=== PATIENT | male | born 1960 | race Caucasian/White ===

== ENCOUNTER → 2019-04-24 | Outpatient (CLI) | payer OTHER ==
--- NOTE | 2019-04-24 15:52 | ECHOF ---
Referral Reason:R01.1 Heart murmur MEASUREMENTS -------- HEIGHT: 177.8 cm WEIGHT: 79.4 kg BP: 115/75 IVSd: 0.9 cm (0.6 - 1.1) LVIDd: 5.1 cm (3.9 - 5.3) LVPWd: 0.8 cm (0.6 - 1.1) IVSs: 1.5 cm LVIDs: 3.0 cm LVPWs: 1.4 cm LA Diam: 3.6 cm (2.7 - 3.8) RVIDd: 3.1 cm (< 3.3) LAESV Index (A-L): 22.39 ml/m Ao Diam: 3.4 cm (2.0 - 3.7) AV Cusp: 2.1 cm (1.5 - 2.6) EPSS: 0.7 cm MV E Colby: 0.80 m/s MV DecT: 282 ms MV A Colby: 0.76 m/s MV E/A Ratio: 1.06 RAP: 5.00 mmHg RVSP: 27.16 mmHg MV EF SLOPE: 79.73 mm/s (70 - 150) MV EXCURSION: 13.02 mm (> 18.000) FINDINGS -------- Sinus rhythm. This was a technically good study. The left ventricular size is normal. Left ventricular wall thickness is normal. Overall left vent ricular systolic function is normal with, an EF between 60 - 65 %. The right ventricle is normal in size. Normal LA size by volume 22+/-6 ml/m2. The right atrium is normal in size. Interatrial and interventricular septum intact. The aortic valve is trileaflet and appears structurally normal. The mitral valve is normal. There is trace mitral regurgitation. Mild tricuspid regurgitation present. Right ventricular systolic pressure is normal at < 35 mmHg. There is no pulmonic regurgitation present. The aortic root size is normal. Normal inferior vena cava with normal inspiratory collapse consistent with estimated right atrial pre ssure of 5 mmHg. There is no pericardial effusion. CONCLUSIONS -------- 1. Sinus rhythm. 2. This was a technically good study. 3. The left ventricular size is normal. 4. Left ventricular wall thickness is normal. 5. Overall left ventricular systolic function is normal with, an EF between 60 - 65 %. 6. The right ventricle is normal in size. 7. Normal LA size by volume 22+/-6 ml/m2. 8. The right atrium is normal in size. 9. Interatrial and interventricular septum intact. 10. The aortic valve is trileaflet and appears structurally normal. 11. The mitral valve is normal. 12. There is trace mitral regurgitation. 13. Mild tricuspid regurgitation present. 14. Right ventricular systolic pressure is normal at < 35 mmHg. 15. There is no pulmonic regurgitation present. 16. The aortic root size is normal. 17. Normal inferior vena cava with normal inspiratory collapse consistent with estimated right atrial pressure of 5 mmHg. 18. There is no pericardial effusion. PROSTHETIC ASSISTANT: Mayra Naylor RDCS
== END | disposition home or self-care (01) ==
LOC: RADECHMAIN 13:53
PROVIDERS: ATTEND Family Medicine
DX: I07.1 Rheumatic tricuspid insufficiency (principal)
CPT/HCPCS: 93306

== ENCOUNTER → 2019-12-21 | Outpatient (CLI) | payer OTHER ==
--- NOTE | 2019-12-21 15:42 | XR ---
EXAMINATION TYPE: XR hand complete LT DATE OF EXAM: 12/21/2019 CLINICAL HISTORY: Left hand pain of the third metacarpal phalangeal joint for 2 to 3 weeks TECHNIQUE: Frontal, lateral and oblique images of the left hand are obtained. COMPARISON: None. FINDINGS: There is no acute fracture/dislocation evident in the left hand. The joint spaces in the l eft hand appear within normal limits. The overlying soft tissue appears unremarkable. IMPRESSION: There is no acute fracture or dislocation in the left hand.
== END | disposition home or self-care (01) ==
LOC: RADXRMAIN 15:04
PROVIDERS: ATTEND Family Medicine
DX: M79.642 Pain in left hand (principal)

== ENCOUNTER 2021-01-07 17:01 | Emergency (ER) | payer OTHER ==
[2021-01-07 17:07] VITALS: RESP 18; TEMP 97.8
--- NOTE | 2021-01-07 17:46 | ED ---
General Adult HPI - General Source: patient Mode of arrival: ambulatory Limitations: no limitations <Jessa Bird - Last Filed: 01/07/21 18:36> <Umesh Joiner - Last Filed: 01/07/21 20:10> - General Chief complaint: Syncope Stated complaint: Irregular heartbeat,dizzy Time Seen by Provider: 01/07/21 17:15 - History of Present Illness Initial comments: Patient is a healthy 60-year-old male presenting to the emergency department after having a near syncopal event yesterday. Patient states he was at work yesterday standing and he started having a feeling like he might pass out, head lennon feeling. Patient states at the same time he felt like his heart was beating irregular or having palpitations. He states his only lasted for about 30 seconds. He states he did take the rest of the day off of work and went home. He has been eating and drinking as normal. He states no chest pain or no chest tightness during this episode. No shortness of breath. He states he did go to his doctor's office today for a checkup who did an EKG which was normal, they did recommend him coming into the ER for further evaluation. He denies tree of heart disease, does have a history of a murmur that was diagnosed a few years back. He did have a normal stress test about 5-10 years ago. Medications, is otherwise very healthy individual, he runs on a treadmill almost daily. He has no chest pains at this time. No nausea or vomiting, no abdominal pain, no recent fever or chills. He has no further complaints. His vital signs are stable upon arrival. (Jessa Bird) - Related Data Home Medications Medication Instructions Recorded Confirmed Acetaminophen Tab [Tylenol Tab] 1,000 mg PO Q6HR PRN 01/07/21 01/07/21 Fexofenadine HCl [Chani Allergy] 180 mg PO HS 01/07/21 01/07/21 Allergies Allergy/AdvReac Type Severity Reaction Status Date / Time No Known Allergies Allergy Verified 01/07/21 17:56 Review of Systems ROS Other: All systems not noted in ROS Statement are negative. <Jessa Bird - Last Filed: 01/07/21 18:36> ROS Other: All systems not noted in ROS Statement are negative. <Umesh Joiner - Last Filed: 01/07/21 20:10> ROS Statement: Those systems with pertinent positive or pertinent negative responses have been documented in the HPI. Past Medical History Past Medical History: No Reported History History of Any Multi-Drug Resistant Organisms: None Reported Past Surgical History: Appendectomy Past Psychological History: No Psychological Hx Reported Smoking Status: Former smoker Past Alcohol Use History: None Reported Past Drug Use History: None Reported <Jessa Bird - Last Filed: 01/07/21 18:36> General Exam Limitations: no limitations <Jessa Bird - Last Filed: 01/07/21 18:36> - General Exam Comments Initial Comments: GENERAL: Patient is well-developed and well-nourished. Patient is nontoxic and in no acute distress. HEAD: Atraumatic, normocephalic. EYES: Pupils equal round and reactive to light, extraocular movements intact, sclera anicteric, conjunctiva are normal. Eyelids were unremarkable. ENT: TMs normal, nares patent, oropharynx clear without exudates. Moist mucous membranes. NECK: Normal range of motion, supple without lymphadenopathy or JVD. LUNGS: Unlabored respirations. Breath sounds clear to auscultation bilaterally and equal. No wheezes rales or rhonchi. HEART: Regular rate and rhythm without murmurs, rubs or gallops. ABDOMEN: Soft, nontender, normoactive bowel sounds. No guarding, no rebound. No masses appreciated. : Deferred MUSCULOSKELETAL: Normal extremities with adequate strength and normal range of motion, no pitting or edema. No clubbing or cyanosis. NEUROLOGICAL: Patient is alert and oriented x 3. Motor and sensory are also intact. Cranial nerves II through XII grossly intact. Symmetrical smile. Normal speech, normal gait. PSYCH: Normal mood, normal affect. SKIN: Warm, Dry, normal turgor, no rashes or lesions noted. (Jessa Bird) Course Vital Signs 01/07/21 01/07/21 17:03 18:49 Temperature 97.8 F Pulse Rate 74 54 L Respiratory 18 18 Rate Blood Pressure 119/88 130/73 O2 Sat by Pulse 98 97 Oximetry EKG Findings - EKG Comments: EKG Findings:: Sinus rhythm with occasional PVCs, otherwise normal ECG, no signs of acute ischemia. Ventricular rate 62, CT interval 164, QTC 416. <Jessa Bird - Last Filed: 01/07/21 18:36> Medical Decision Making <Jessa Bird - Last Filed: 01/07/21 18:36> - Lab Data Result diagrams: 01/07/21 18:42 01/07/21 18:42 - Radiology Data Radiology results: image reviewed (Chest x-ray shows no acute process) <Umesh Joiner - Last Filed: 01/07/21 20:10> - Medical Decision Making Patient is a 60-year-old male here for near syncopal episode yesterday as well as heart palpitations. No chest pain or tightness. His vitals are stable. He did see his PCP today who had a normal EKG in the office but then recommended ER for further evaluation. Vitals are stable. (Jessa Bird) Patient reevaluated and resting comfortably in bed. Patient remained symptom- free. Patient states yesterday she can episode of palpitations associated with lightheadedness. No syncope. Patient denies ever having chest discomfort. Patient has been symptom-free since that time. Patient updated on results and need for follow-up. (Umesh Joiner) - Lab Data Lab Results 01/07/21 01/07/21 01/07/21 Range/Units 18:42 18:42 18:42 WBC 5.8 (3.8-10.6) k/uL RBC 5.12 (4.30-5.90) m/uL Hgb 15.6 (13.0-17.5) gm/dL Hct 45.9 (39.0-53.0) % MCV 89.6 (80.0-100.0) fL MCH 30.5 (25.0-35.0) pg MCHC 34.0 (31.0-37.0) g/dL RDW 12.9 (11.5-15.5) % Plt Count 208 (150-450) k/uL MPV 7.3 Neutrophils % 57 % Lymphocytes % 28 % Monocytes % 9 % Eosinophils % 3 % Basophils % 1 % Neutrophils # 3.3 (1.3-7.7) k/uL Lymphocytes # 1.6 (1.0-4.8) k/uL Monocytes # 0.5 (0-1.0) k/uL Eosinophils # 0.2 (0-0.7) k/uL Basophils # 0.0 (0-0.2) k/uL PT 10.3 (9.0-12.0) sec INR 1.0 (<1.2) APTT 23.9 (22.0-30.0) sec Sodium 139 (137-145) mmol/L Potassium 4.2 (3.5-5.1) mmol/L Chloride 106 (98-107) mmol/L Carbon Dioxide 28 (22-30) mmol/L Anion Gap 5 mmol/L BUN 23 H (9-20) mg/dL Creatinine 0.78 (0.66-1.25) mg/dL Est GFR (CKD-EPI)AfAm >90 (>60 ml/min/1.73 sqM) Est GFR (CKD-EPI)NonAf >90 (>60 ml/min/1.73 sqM) Glucose 87 (74-99) mg/dL Calcium 9.2 (8.4-10.2) mg/dL Total Bilirubin 0.5 (0.2-1.3) mg/dL AST 26 (17-59) U/L ALT 22 (4-49) U/L Alkaline Phosphatase 71 (38-126) U/L Troponin I (0.000-0.034) ng/mL Total Protein 6.7 (6.3-8.2) g/dL Albumin 4.1 (3.5-5.0) g/dL 01/07/21 Range/Units 18:42 WBC (3.8-10.6) k/uL RBC (4.30-5.90) m/uL Hgb (13.0-17.5) gm/dL Hct (39.0-53.0) % MCV (80.0-100.0) fL MCH (25.0-35.0) pg MCHC (31.0-37.0) g/dL RDW (11.5-15.5) % Plt Count (150-450) k/uL MPV Neutrophils % % Lymphocytes % % Monocytes % % Eosinophils % % Basophils % % Neutrophils # (1.3-7.7) k/uL Lymphocytes # (1.0-4.8) k/uL Monocytes # (0-1.0) k/uL Eosinophils # (0-0.7) k/uL Basophils # (0-0.2) k/uL PT (9.0-12.0) sec INR (<1.2) APTT (22.0-30.0) sec Sodium (137-145) mmol/L Potassium (3.5-5.1) mmol/L Chloride (98-107) mmol/L Carbon Dioxide (22-30) mmol/L Anion Gap mmol/L BUN (9-20) mg/dL Creatinine (0.66-1.25) mg/dL Est GFR (CKD-EPI)AfAm (>60 ml/min/1.73 sqM) Est GFR (CKD-EPI)NonAf (>60 ml/min/1.73 sqM) Glucose (74-99) mg/dL Calcium (8.4-10.2) mg/dL Total Bilirubin (0.2-1.3) mg/dL AST (17-59) U/L ALT (4-49) U/L Alkaline Phosphatase (38-126) U/L Troponin I <0.012 (0.000-0.034) ng/mL Total Protein (6.3-8.2) g/dL Albumin (3.5-5.0) g/dL Disposition <Jessa Bird - Last Filed: 01/07/21 18:36> Is patient prescribed a controlled substance at d/c from ED?: No Time of Disposition: 20:10 <Umesh Joiner - Last Filed: 01/07/21 20:10> Clinical Impression: Palpitations Disposition: HOME SELF-CARE Condition: Stable Instructions (If sedation given, give patient instructions): Heart Palpitations (ED) Additional Instructions: Please do follow-up with Dr. Escobar in the next couple days for recheck. Consider echo. Consider Holter monitor. Return for increased heart rate, chest pain, passing out, worsening or changing symptoms or difficulty breathing, or any other concerns. Referrals: Jerardo Escobar MD [Primary Care Provider] - 1-2 days
--- NOTE | 2021-01-07 18:47 | XR ---
EXAMINATION TYPE: XR chest 2V DATE OF EXAM: 01/07/2021 COMPARISON: NONE HISTORY: Irregular heartbeat TECHNIQUE: 2 views FINDINGS: Heart and mediastinum are normal. Lungs are clear. Diaphragm is normal. Bony thorax appears normal. There are chest leads. IMPRESSION: Normal chest. Normal heart.
[2021-01-07 18:51] LABS: Basophils % (A) 1 %; Eosinophils # (A) 0.2 k/uL (0-0.7); Eosinophils % (A) 3 %; HCT 45.9 % (39.0-53.0); HGB 15.6 gm/dL (13.0-17.5); Lymphocytes # (A) 1.6 k/uL (1.0-4.8); Lymphocytes % (A) 28 %; MCH 30.5 pg (25.0-35.0); MCV 89.6 fL (80.0-100.0); Mean Platelet Volume 7.3; Monocytes # (A) 0.5 k/uL (0-1.0); Monocytes % (A) 9 %; Neutrophils # (A) 3.3 k/uL (1.3-7.7); Neutrophils % (A) 57 %; Platelet Count 208 k/uL (150-450); RBC 5.12 m/uL (4.30-5.90); RDW 12.9 % (11.5-15.5); WBC 5.8 k/uL (3.8-10.6)
[2021-01-07 19:00] LABS: ALT 22 U/L (4-49); AST 26 U/L (17-59); African American GFR (CKD) >90 (>60 ml/min/1.73 sqM); Albumin 4.1 g/dL (3.5-5.0); Alkaline Phosphatase 71 U/L (38-126); Anion Gap 5 mmol/L; Blood Urea Nitrogen 23 mg/dL (9-20); Calcium 9.2 mg/dL (8.4-10.2); Carbon Dioxide 28 mmol/L (22-30); Chloride 106 mmol/L (98-107); Glucose 87 mg/dL (74-99); Non-African American GFR(CKD) >90 (>60 ml/min/1.73 sqM); Potassium 4.2 mmol/L (3.5-5.1); Sodium 139 mmol/L (137-145); Total Bilirubin 0.5 mg/dL (0.2-1.3); Total Protein 6.7 g/dL (6.3-8.2)
[2021-01-07 19:15] LABS: Partial Thromboplastin Time 23.9 sec (22.0-30.0); Prothrombin Time 10.3 sec (9.0-12.0)
[2021-01-07 20:36] VITALS: BP 112/76; PULSE 80
== END 2021-01-07 20:36 | disposition home or self-care (01) ==
LOC: EC 17:01
DX: R00.2 Palpitations (principal); Z87.891 Personal history of nicotine dependence; Z90.49 Acquired absence of other specified parts of digestive tract
CPT/HCPCS: 36415; 71046; 80053; 84484; 85025; 85610; 85730; 93005; 99284

== ENCOUNTER → 2021-01-23 | Outpatient (CLI) | payer OTHER ==
--- NOTE | 2021-01-23 11:38 | ECHOF ---
Referral Reason:R07.89 Atypical Chest Pain, R00.2 Palpitations MEASUREMENTS -------- HEIGHT: 177.8 cm WEIGHT: 78.0 kg BP: RVIDd: 3.8 cm (< 3.3) IVSd: 1.3 cm (0.6 - 1.1) LVIDd: 4.2 cm (3.9 - 5.3) LVPWd: 1.2 cm (0.6 - 1.1) IVSs: 1.6 cm LVIDs: 2.6 cm LVPWs: 1.8 cm LAESV Index (A-L): 24.11 ml/m Ao Diam: 2.5 cm (2.0 - 3.7) AV Cusp: 1.7 cm (1.5 - 2.6) MV EXCURSION: 18.162 mm (> 18.000) MV EF SLOPE: 99 mm/s (70 - 150) EPSS: 0.3 cm MV E Colby: 0.67 m/s MV DecT: 252 ms MV A Colby: 0.69 m/s MV E/A Ratio: 0.98 RAP: 5.00 mmHg RVSP: 28.88 mmHg FINDINGS -------- Sinus rhythm. This was a technically adequate study. The left ventricular size is normal. There is mild concentric left ventricular hypertrophy. Overa ll left ventricular systolic function is normal with, an EF between 55 - 60 %. The diastolic fillin g pattern is normal for the age of the patient 11.55. The right ventricle is mild to moderately enlarged. Normal LA size by volume 22+/-6 ml/m2. The right atrial size is normal. Interatrial and interventricular septum intact. The aortic valve is trileaflet and appears structurally normal. There is mild aortic valve sclerosi s. There is no evidence of aortic regurgitation. There is no evidence of aortic stenosis. There is trace to mild mitral regurgitation. Mild tricuspid regurgitation present. There is no evidence of pulmonary hypertension. The right v entricular systolic pressure, as measured by Doppler, is 28.88mmHg. There is no pulmonic regurgitation present. The aortic root size is normal. IVC Not well visulized. There is no pericardial effusion. CONCLUSIONS -------- 1. The left ventricular size is normal. 2. There is mild concentric left ventricular hypertrophy. 3. Overall left ventricular systolic function is normal with, an EF between 55 - 60 %. 4. The diastolic filling pattern is normal for the age of the patient 11.55 5. The right ventricle is mild to moderately enlarged. 6. There is mild aortic valve sclerosis. 7. There is trace to mild mitral regurgitation. 8. Mild tricuspid regurgitation present. PROJECT DEVELOPMENT MANAGER: Dana Matthew RDCS
--- NOTE | 2021-01-26 14:03 | ECHOS ---
Stress Test Results/Findings: Exam Performed: Stress Echo Exam Date: 01/23/21 Reason for Exam: Chest Pain Height: 70" Weight: 172lbs Protocol: Stress Echo Stage: 4 Duration of Exercise: 12:00 Resting Heart Rate: 60 Resting Blood Pressure: 117/62 Maximum Achieved Heart Rate: 139 Maximum Achieved Blood Pressure: 148/63 85% PMHR: 134 100% PMHR: 158 METS: 12.1 Technologist Comment: Stress Test Results/Findings: This is a 60-year-old gentleman being evaluated for symptoms of chest pain and palpitations. Stress data: Baseline EKG showed sinus rhythm with normal VT interval and QRS duration without any significant ST-T changes. Blood pressure test is 117/62 with pulse rate of 60. Patient walked on a Rafy protocol for 12 minutes achieving a maximum rate of 139 with a blood pressure 140-68. EKGs taken during exercise showed about half a millimeter J-point depression with upsloping ST segments in inferolateral leads which are not diagnostic for ischemia. Patient did not experience any chest pain. Echo data: Baseline echo images show normal wall motion and thickening. Exercise echo images showed augmentation of wall motion and thickening in all the segments. Final impression: #1. Negative stress test #2. Negative stress echo MTDD
--- NOTE | 2021-01-26 14:36 | P.STRESS ---
- Stress Test Note Stress Test Results/Findings: Exam Performed: Exam Date: Reason for Exam: Height: Weight: Protocol: Stage: Duration of Exercise: Resting Heart Rate: Resting Blood Pressure: Maximum Achieved Heart Rate: Maximum Achieved Blood Pressure: 85% PMHR: 100% PMHR: METS: Technologist Comment: Stress Test Results/Findings: This is a 60-year-old gentleman being evaluated for symptoms of chest pain and palpitations. Stress data: Baseline EKG showed sinus rhythm with normal [place] interval and QRS duration without any significant ST-T changes. Blood pressure test is 117/62 with pulse rate of 60. Patient walked on a Rafy protocol for 12 minutes achieving a maximum rate of 139 with a blood pressure 140-68. EKGs taken during exercise showed about half a millimeter J-point depression with upsloping ST segments in inferolateral leads which are not diagnostic for ischemia. Patient did not experience any chest pain. Echo data: Baseline echo images show normal wall motion and thickening. Exercise echo images showed augmentation of wall motion and thickening in all the segments. Final impression: #1. Negative stress test #2. Negative stress echo
== END | disposition home or self-care (01) ==
LOC: RADECHMAIN 08:25
PROVIDERS: ATTEND Family Medicine
DX: I08.3 Combined rheumatic disorders of mitral, aortic and tricuspid valves (principal)
CPT/HCPCS: 93225; 93226; 93306; 93351

== ENCOUNTER → 2021-07-17 | Outpatient (CLI) | payer OTHER ==
--- NOTE | 2021-07-17 09:13 | CT ---
EXAMINATION TYPE: CT soft tissue neck w con DATE OF EXAM: 07/17/2021 9:03 AM COMPARISON: None HISTORY: dysphagia CT DLP: 607 mGycm Automated exposure control for dose reduction was used. CONTRAST: CT scan of the neck is performed following with IV Contrast, patient injected with 100 mL of Isovue 3 00. Axial images are obtained, coronal and sagittal reformatted images are reviewed. FINDINGS: Subcentimeter thyroid nodules noted. Correlate with ultrasound. Lung apices clear. Submandibular and parotid glands symmetric. Airway patent. Nasopharynx and oropharynx symmetric. Orbi ts symmetric. Intracranial structures within normal limits. Base of the tongue symmetric. No patholog ic adenopathy. Dental hardware artifact results in some obscuration of the images. Hypertrophic and d egenerative changes of the spine. IMPRESSION: 1. Correlate for thyroid nodules greater on the left. Ultrasound suggested. 2. No pathologic adenopathy.
== END | disposition home or self-care (01) ==
LOC: RADCTMAIN 08:01
PROVIDERS: ATTEND Family Medicine
DX: R59.0 Localized enlarged lymph nodes (principal)
CPT/HCPCS: 70491; Q9967

== ENCOUNTER → 2021-08-28 | Outpatient (CLI) | payer OTHER ==
--- NOTE | 2021-08-28 10:21 | US ---
EXAMINATION TYPE: US thyroid st tissue head/neck DATE OF EXAM: 08/28/2021 COMPARISON: CT neck July 17, 2021 CLINICAL HISTORY: E04.1 SINGLE THYROID NODULE. nodule seen on recent CT GLAND SIZE: Right Lobe: 4.7 x 1.3 x 2.0 cm Overall Parenchyma: homogenous Left Lobe: 4.7 x 1.6 x 1.8 cm Overall Parenchyma: homogeneous Isthmus Thickness: 0.2 cm NODULES RIGHT: # of nodules measured on right: 0 LEFT: # of nodules measured on left: 1 1. 0.5 X 0.6 x 0.4 cm, lower, solid or almost completely solid, isoechoic nodule, which is wider th an tall, with smooth margins, without echogenic foci. Prior size: [employer] ATT[employer] ISTHMUS: # of nodules measured in the isthmus: 0 Bilateral neck scanned, no evidence of lymphadenopathy. Homogeneous normal-sized thyroid with 5 mm isoechoic solid nodule left thyroid lobe lower pole level. IMPRESSION: As above. No significant greater than 1.0 cm nodules are evident
== END | disposition home or self-care (01) ==
LOC: RADUSWWP 09:34
PROVIDERS: ATTEND Family Medicine
DX: E04.1 Nontoxic single thyroid nodule (principal)
CPT/HCPCS: 76536

== ENCOUNTER → 2021-10-07 | Outpatient (CLI) | payer OTHER ==
--- NOTE | 2021-10-07 13:54 | FL ---
EXAMINATION TYPE: FL barium swallow w video DATE OF EXAM: 10/07/2021 MODIFIED SWALLOW / DEGLUTITION STUDY CLINICAL HISTORY: Dysphagia. TECHNIQUE: Deglutition study is performed utilizing thin liquid barium, honey and nectar thick liqui d barium, barium thick applesauce, and barium coated cracker. 18 seconds of fluoro time and 2 images obtained. COMPARISON: None. FINDINGS: The oral and pharyngeal phases show satisfactory initiation and propagation with all modali ties tested. Satisfactory mastication is seen with solid modalities tested. There is no evidence of penetration or aspiration with any modality tested. No significant pharyngeal residue was appreciate d. Incidental mild to moderate disc space narrowing and spurring C5-C6 level. IMPRESSION: No penetration or aspiration observed. Please refer to speech therapist notes for furthe r details if necessary.
== END | disposition home or self-care (01) ==
LOC: RADFLMAIN 11:28
PROVIDERS: ATTEND Otolaryngology Facial Plastic Surgery
DX: R13.12 Dysphagia, oropharyngeal phase (principal)
CPT/HCPCS: 74230

== ENCOUNTER 2023-01-29 07:43 | Inpatient (IN) | payer OTHER ==
[2023-01-29] MEDS ORDERED: ATORVASTATIN 80 MG TAB PO STA (07:53)
[2023-01-29] MEDS ORDERED: HEPARIN SODIUM 1,000 UN/ML (10ML VL) IV ONE ×2 (07:53→08:39)
[2023-01-29] MEDS ORDERED: ASPIRIN 81 MG PO STA (07:53)
[2023-01-29] MEDS ORDERED: SODIUM CHLORIDE 0.9% 500 ML 500 ML IV STA (07:53)
[2023-01-29] MEDS ORDERED: ONDANSETRON 4 MG/2 ML VIAL IVP STA (07:58)
[2023-01-29] MEDS: NITROGLYCERIN SL TABS 0.4 MG TAB SUBLINGUAL STA ×2 (07:58→08:14)
--- NOTE | 2023-01-29 07:58 | ED ---
General Adult HPI - General Chief complaint: Chest Pain Stated complaint: Chest pain Time Seen by Provider: 01/29/23 07:45 Source: patient, RN notes reviewed, old records reviewed Mode of arrival: ambulatory Limitations: no limitations - History of Present Illness Initial comments: This is a 62-year-old male presents emergency Department complaining of chest pain. Patient states it started about an hour. Patient states he's been expressing some discomfort in her chest over the last couple of days but has been short lived. Patient states today he was having quite a bit of pressure in her chest he has shortness of breath and sweating and he is mildly nauseated. Patient denies any diabetes hypertension but states his cholesterol is a little bit high but he hasn't taken any meds for. Patient states he quit smoking many years ago. Patient states she has positive family history that his father had quite a bit of heart disease. Patient denies any fever chills or cough. Patient denies any palpitations. Patient denies any abdominal pain patient denies any vomiting but is nauseated. Patient denies swelling to the legs or calf tenderness - Related Data Home Medications Medication Instructions Recorded Confirmed Acetaminophen Tab [Tylenol Tab] 1,000 mg PO Q6HR PRN 01/07/21 01/07/21 Fexofenadine HCl [Cahni Allergy] 180 mg PO HS 01/07/21 01/07/21 Allergies Allergy/AdvReac Type Severity Reaction Status Date / Time No Known Allergies Allergy Verified 01/07/21 17:56 Review of Systems ROS Statement: Those systems with pertinent positive or pertinent negative responses have been documented in the HPI. ROS Other: All systems not noted in ROS Statement are negative. Past Medical History Past Medical History: No Reported History Additional Past Medical History / Comment(s): Allergies History of Any Multi-Drug Resistant Organisms: None Reported Past Surgical History: Appendectomy Past Psychological History: No Psychological Hx Reported Smoking Status: Former smoker Past Alcohol Use History: None Reported Past Drug Use History: None Reported General Exam - General Exam Comments Initial Comments: GENERAL: Patient is well-developed and well-nourished. Patient is nontoxic and well- hydrated and is in mild distress. ENT: Neck is soft and supple. No significant lymphadenopathy is noted. Oropharynx is clear. Moist mucous membranes. Neck has full range of motion without eliciting any pain. EYES: The sclera were anicteric and conjunctiva were pink and moist. Extraocular movements were intact and pupils were equal round and reactive to light. Eyelids were unremarkable. PULMONARY: Unlabored respirations. Good breath sounds bilaterally. No audible rales rhonchi or wheezing was noted. CARDIOVASCULAR: There is a regular rate and rhythm without any murmurs gallops or rubs. ABDOMEN: Soft and nontender with normal bowel sounds. SKIN: Skin is clear with no lesions or rashes and otherwise unremarkable. NEUROLOGIC: Patient is alert and oriented x3. Cranial nerves II through XII are grossly intact. Motor and sensory are also intact. Normal speech, volume and content. Symmetrical smile. MUSCULOSKELETAL: Normal extremities with adequate strength and full range of motion. No lower extremity swelling or edema. No calf tenderness. LYMPHATICS: No significant lymphadenopathy is noted PSYCHIATRIC: Normal psychiatric evaluation. Limitations: no limitations Course Vital Signs 01/29/23 07:44 Temperature 97.7 F Pulse Rate 78 Respiratory 18 Rate Blood Pressure 154/83 O2 Sat by Pulse 99 Oximetry Medical Decision Making - Medical Decision Making EKG is interpreted by myself shows a sinus rhythm at 79 bpm MS interval is 185 QRSs 101 QT interval 350 QTC is 392. Patient's EKG shows ST segment elevation in [address] segment depression in inferior leads II, III, and F aVF as well as V1 and V2. Was pt. sent in by a medical professional or institution (KATHLEEN Cannon, MARKETING INTERN, urgent care, hospital, or long-term...) When possible be specific @ -[No] Did you speak to anyone other than the patient for history (EMS, parent, family, police, friend...)? What history was obtained from this source @ -[No] Did you review nursing and triage notes (agree or disagree)? Why? @ -[I reviewed and agree with nursing and triage notes] Were old charts reviewed (outside hosp., previous admission, EMS record, old EKG, old radiological studies, urgent care reports/EKG's, long-term records)? Report findings @ -[No old charts were reviewed] Differential Diagnosis (chest pain, altered mental status, abdominal pain women, abdominal pain men, vaginal bleeding, weakness, fever, dyspnea, syncope, headache, dizziness, GI bleed, back pain, seizure, CVA, palpatations, mental health, musculoskeletal)? @ -Differential Chest Pain: Stable Angina, Unstable Angina, STEMI, NSTEMI Aortic Dissection, Pneumothorax, Musculoskeletal, Esophageal Spasm GERD, Cholecystitis, Pancreatitis, Zoster, this is not meant to be an all-inclusive list. EKG interpreted by me (3pts min.). @ -[As above] X-rays interpreted by me (1pt min.). @ -Chest x-ray was interpreted by myself shows no acute abnormality. CT interpreted by me (1pt min.). @ -[None done] U/S interpreted by me (1pt. min.). @ -[None done] What testing was considered but not performed or refused? (CT, X-rays, U/S, labs)? Why? @ -[None] What meds were considered but not given or refused? Why? @ -[None] Did you discuss the management of the patient with other professionals (professionals i.e. , PA, MARKETING INTERN, lab, RT, psych nurse, social service director, motor and generator brush cutter, teacher, environmental protection officer, behavioral health case manager)? Give summary @ -I spoke with Dr. Montalvo after I called a STEMI overhead. I also spoke with the [facility] hospitalist and they agreed to admit the patient Was smoking cessation discussed for >3mins.? @ -[No] Was critical care preformed (if so, how long)? @ -35 minutes Were there social determinants of health that impacted care today? How? (Homelessness, low income, unemployed, alcoholism, drug addiction, transportation, low edu. Level, literacy, decrease access to med. care, assisted, rehab)? @ -[No] Was there de-escalation of care discussed even if they declined (Discuss DNR or withdrawal of care, Hospice)? DNR status @ -[No] What co-morbidities impacted this encounter? (DM, HTN, Smoking, COPD, CAD, Cancer, CVA, ARF, Chemo, Hep., AIDS, mental health diagnosis, sleep apnea, morbid obesity)? @ -[None] Was patient admitted / discharged? Hospital course, mention meds given and route, prescriptions, significant lab abnormalities, going to OR and other pertinent info. @ -Patient came in with significant chest pain EKG showed a STEMI in progress. Patient was given nitroglycerin and aspirin and heparin Lipitor. Patient had one nitroglycerin did have some relief. I spoke with Dr. Grider and a STEMI was called overhead in the cath team came in. I spoke with the [facility] spital I agreed to admit the patient. Undiagnosed new problem with uncertain prognosis? @ -[No] Drug Therapy requiring intensive monitoring for toxicity (Heparin, Nitro, Insulin, Cardizem)? @ -[No] Were any procedures done? @ -[No] Diagnosis/symptom? @ -STEMI Acute, or Chronic, or Acute on Chronic? @ -Acute Uncomplicated (without systemic symptoms) or Complicated (systemic symptoms)? @ -Complicated Side effects of treatment? @ -[No] Exacerbation, Progression, or Severe Exacerbation? @ -[No] Poses a threat to life or bodily function? How? (Chest pain, [place], [place], pneumonia, PE, COPD, DKA, ARF, appy, cholecystitis, CVA, Diverticulitis, Homicidal, Suicidal, threat to staff... and all critical care pts) @ -Yes this could lead to poor perfusion and then organ dysfunction Critical Care Time Critical Care Time: Yes Total Critical Care Time: 35 Disposition Clinical Impression: ST elevation myocardial infarction (STEMI) Disposition: ADMITTED IP TO THIS HOSP Referrals: Jerardo Escobar MD [Primary Care Provider] - 1-2 days Time of Disposition: 08:20
[2023-01-29] MEDS ORDERED: MORPHINE SULFATE 4 MG/ML SYRINGE IVP PRN (08:06)
[2023-01-29] MEDS ORDERED: MORPHINE SULFATE 2 MG/ML SYRINGE IVP PRN (08:07)
[2023-01-29 08:08] LABS: HCT 44.4 % (39.0-53.0); HGB 15.1 gm/dL (13.0-17.5); MCH 30.6 pg (25.0-35.0); MCHC 34.1 g/dL (31.0-37.0); MCV 89.6 fL (80.0-100.0); Mean Platelet Volume 7.6; Platelet Count 236 k/uL (150-450); RBC 4.95 m/uL (4.30-5.90); RDW 12.9 % (11.5-15.5); WBC 6.3 k/uL (3.8-10.6)
[2023-01-29 08:18] LABS: ALT 28 U/L (4-49); AST 32 U/L (17-59); African American GFR (CKD) >90 (>60 ml/min/1.73 sqM); Albumin 4.1 g/dL (3.5-5.0); Alkaline Phosphatase 75 U/L (38-126); Anion Gap 12 mmol/L; Blood Urea Nitrogen 26 mg/dL (9-20); Calcium 9.1 mg/dL (8.4-10.2); Carbon Dioxide 24 mmol/L (22-30); Chloride 105 mmol/L (98-107); Glucose 134 mg/dL (74-99); Non-African American GFR(CKD) >90 (>60 ml/min/1.73 sqM); Potassium 3.6 mmol/L (3.5-5.1); Sodium 141 mmol/L (137-145); Total Bilirubin 0.7 mg/dL (0.2-1.3); Total Protein 6.8 g/dL (6.3-8.2)
[2023-01-29] MEDS ORDERED: VERAPAMIL 2.5 MG/ML 2 ML AMP ONE (08:18)
[2023-01-29] MEDS ORDERED: HEPARIN SODIUM 1,000 UN/ML (10ML VL) ONE (08:19)
[2023-01-29 08:20] LABS: INR 0.9 (<1.2); Partial Thromboplastin Time 23.4 sec (22.0-30.0)
--- NOTE | 2023-01-29 08:20 | XR ---
EXAMINATION TYPE: XR chest 1V DATE OF EXAM: 01/29/2023 COMPARISON: Chest x-ray January 07, 2021 HISTORY: Chest pain. TECHNIQUE: Single frontal view of the chest is obtained. FINDINGS: Diminished inspiration on current study. There is no focal air space opacity, pleural effu patricia, or pneumothorax seen. Cardiomegaly is present. The osseous structures are intact. IMPRESSION: Cardiomegaly without acute pulmonary process.
[2023-01-29] MEDS ORDERED: LIDOCAINE 1% INJ 10MG/ML (20 ML MDV) ONE (08:24)
--- NOTE | 2023-01-29 08:25 | CONS ---
CONSULTATION CHIEF COMPLAINT: Chest pain. HISTORY OF PRESENT ILLNESS: Korey is a 62-year-old gentleman with no significant past medical history who presented to hospital with suddenly worsened chest pain an hour ago. He has had some chest discomfort yesterday and had on and off episodes of chest pain that suddenly got worse this morning. His EKG shows acute ST-segment elevation in 1 and aVL suggestive of acute lateral wall myocardial infarction. STEMI has been alerted. At the time of my evaluation, the patient is hemodynamically stable, seems to be in pain. He is getting heparin, aspirin, and morphine and will take him for the primary angioplasty. PAST MEDICAL HISTORY: Significant for dyslipidemia. He is not on any medications. MEDICATIONS: He takes some medicines. ALLERGIES: There are no known drug allergies. FAMILY HISTORY: Significant for premature coronary artery disease on his dad's side. SOCIAL HISTORY: Negative for smoking, EtOH abuse or drug abuse. REVIEW OF SYSTEMS: A 14 out of 14 review of systems has been performed. Pertinent are as documented. PHYSICAL EXAMINATION: GENERAL: Comfortable at rest. He seems to be in pain. VITAL SIGNS: Stable. NECK: There is no jugular venous distention. Carotid upstroke is normal. There is no bruit. CHEST: Reveals good air entry bilaterally. HEART: Reveals first and second heart sounds. No gallop. No murmur. ABDOMEN: Soft. MUSCULOSKELETAL: Exam of extremities did not reveal any edema. Peripheral pulses are felt. ASSESSMENT: Acute lateral wall myocardial infarction. PLAN: The patient will undergo emergent cardiac catheterization with a view to performing primary angioplasty. MMODL / IJN: [id number] /
[2023-01-29] MEDS ORDERED: LIDOCAINE 1% INJ 10MG/ML (20 ML MDV) SQ ONE ×2 (08:26→08:28)
[2023-01-29] MEDS ORDERED: MIDAZOLAM 2 MG/2 ML VIAL IV ONE (08:28)
[2023-01-29] MEDS ORDERED: SODIUM CHLORIDE 0.9% 500 ML 500 ML IV ONE ×3 (08:28→09:59)
[2023-01-29] MEDS ORDERED: PRASUGREL 10 MG TAB ONE (08:35)
[2023-01-29] MEDS ORDERED: PRASUGREL 10 MG TAB PO ONE (08:37)
[2023-01-29 09:05] LABS: Eosinophils # (M) 0.25 k/uL (0-0.7); Lymphocytes # (M) 1.89 k/uL (1.0-4.8); Monocytes # (M) 0.76 k/uL (0-1.0); Neutrophils % (M) 54 %; Nucleated Red Blood Cells 0 /100 WBC (0-0); Total Cells Counted 100
[2023-01-29 09:06] LABS: RBC Morphology Normal
--- NOTE | 2023-01-29 09:49 | CC ---
CARDIAC CATHETERIZATION REPORT INDICATIONS: Acute lateral wall myocardial infarction. PROCEDURE NOTE: After obtaining informed consent, left heart catheterization and coronary angiogram were performed via the right femoral artery using standard Babatunde catheters. The patient tolerated the procedure well without any obvious immediate complications, received moderate conscious sedation. Total sedation time was 10 minutes. FINDINGS: 1. Hemodynamics: Left ventricular end-diastolic pressure is 20 mm, there is no significant gradient across the aortic valve. 2. Left Ventriculogram: Left ventriculogram is not performed. 3. Angiographic Data: a.Right coronary artery: Right coronary artery is a large dominant vessel that shows a focal area of 95% stenosis in the mid to distal portion with some haziness and could be the artery where there was a plaque rupture. Rest of the RCA also looks diffusely diseased. The left main coronary artery is a normal- sized vessel. There is a 10% to 20% atherosclerotic block in the left main, divides into left anterior descending coronary artery and circumflex coronary artery. LAD shows a focal 95% stenosis in its just proximal to the second diagonal branch. Circumflex coronary artery is a nondominant vessel that gives off an OM branch that shows a 70% to 80% stenosis. AV groove circ has 60% to 70% stenosis. CONCLUSIONS: Three-vessel coronary artery disease as described above with severe focal stenosis involving large dominant right coronary artery, mid LAD. PLAN: We will first proceed with angioplasty of the right coronary artery, and the patient will probably have angioplasty of the LAD on this admission. MMODL / IJN: [id number] /
[2023-01-29] MEDS ORDERED: IOPAMIDOL-370 100ML BTL INJ ONE (09:58)
[2023-01-29] MEDS ORDERED: NITROGLYCERIN SL TABS 0.4 MG TAB SUBLINGUAL PRN (10:09)
[2023-01-29] MEDS ORDERED: RX INFO: IV CONTRAST WAS GIVEN 1 EACH MISC MISCELLANE PRN (10:09)
[2023-01-29] MEDS ORDERED: ATROPINE SULFATE 0.1 MG/ML 10ML SYRINGE IV PRN (10:09)
[2023-01-29] MEDS ORDERED: MAG HYDROX/AL HYDROX/SIMETH 30 ML CUP PO PRN (10:09)
[2023-01-29] MEDS ORDERED: ZOLPIDEM 5 MG TAB PO PRN (10:09)
[2023-01-29 10:13] LABS: Glucose,Whole Blood 113 mg/dL (70-110)
[2023-01-29] MEDS ORDERED: SODIUM CHLORIDE 0.9% 1,000 ML in EMPTY BAG 1 BAG IV SCH (10:15)
--- NOTE | 2023-01-29 10:17 | P.CARDCATH ---
Date of Procedure: 01/29/23 Description of Procedure: PERCUTANEOUS TRANSLUMINAL CORONARY ANGIOPLASTY CLINICAL INFORMATION: The patient is a 62-year-old male with no prior history of CAD who presented with an acute myocardial infarction, underwent cardiac catheterization by Dr. Montalvo and was found to have subtotally occluded distal R CA and significant disease in the mid RCA . Recommendations were made regarding angioplasty and stenting. The procedure as well as the risks and the complications were discussed with the patient who was in full understanding and agreement. PROCEDURE: A 6 Cypriot 0.75 AL guiding catheter was introduced into the system. After cannulating the right coronary ostium, a 0.014 BMW J was advanced across the lesion and positioned distally. Following that a 2.5 x 12 mm Treck balloon was advanced and inflated at 10 atmosphere. Following that a 2.75 x 38 mm Xience sanjuanita point stent was deployed. It was dilated at 16. Following that and Kiko IVUS catheter was introduced and imaging were obtained. After removing the catheter attempted to advanced a 4.0 x 28 mm Xience sanjuanita point stent to the mid segment were unsuccessful, the stent was removed and a 3.0 x 12 mm Treck was advanced and inflations in the mid segment were done and subsequently with the help of a 6-Cypriot guide liner the stent was advanced deployed at 16 hannah. Subsequently multiple inflation in both stents using a 4.0 x 20 mm, 4.0 x 12 and 4.0 x 8 mm NC Treck balloon were done at a maximum of 12 hannah. Repeat intravascular ultrasound imaging were performed. After the last inflation, after appropriate wait, the balloon and the guidewire were withdrawn back into the guiding catheter. Images were obtained and repeated. Those images reveal stable successful stenting. At that point, the guiding catheter, the balloon, and guidewire were removed. The sheath was removed. Hemostasis was obtained with deployment of an Angio-Seal. There were no immediate complications. The patient was returned to the room in stable condition. Of note, the patient received 5000 units of heparin as well as Effient. His ACT was followed. There was no immediate complications. He was pain-free at the end of the procedure with improvement in his EKG changes RESULTS: Successful stenting of the distal RCA with reduction of stenosis from 99 % to less than 5 % with stenting of the mid RCA with reduction of stenosis from 70% to 0%. RECOMMENDATIONS: The patient will continue on aspirin and Effient without any interruption for one year. He will be on aggressive coronary risks modifications and guidelines therapy. He will be evaluated to undergo revascularization of his LAD in the evaluation of the left circumflex. The findings and recommendations were discussed with the patient and the family, they are in full understanding and agreement. Duration of sedation: 70 minutes
[2023-01-29] MEDS: METOPROLOL TARTRATE 25 MG TAB PO SCH ×2 (11:35→20:26)
[2023-01-29] MEDS ORDERED: HYDROmorphone 0.5 MG/0.5 ML SYRINGE IVP STA (13:42)
[2023-01-29] MEDS ORDERED: NITROGLYCERIN OINT 1 INCH/GM PACKET TOPICAL STA (13:48)
[2023-01-29 18:00] VITALS: BMI 26.5
[2023-01-29] MEDS: ATORVASTATIN 80 MG TAB PO SCH (20:28)
--- NOTE | 2023-01-29 21:37 | HP ---
HISTORY AND PHYSICAL CHIEF COMPLAINT: Chest pain. HISTORY OF PRESENT ILLNESS: This is a 62-year-old gentleman with a past medical history of prostate disease, has presented with chest pain, which was felt in the anterior part. The EKG showed ST- segment elevation in 1 and aVL and acute lateral wall myocardial infarction suspected and the patient underwent cardiac catheterization and stenting of the RCA by Cardiology. There is no history of any fever, rigors, or chills at this time. PAST MEDICAL HISTORY: History of prostate disorder, history of allergies. HOME MEDICATIONS: Sildenafil. ALLERGIES: None. FAMILY HISTORY: History of myocardial infarction. SOCIAL HISTORY: Previous history of smoking. REVIEW OF SYSTEMS: A 14-point review is negative except as mentioned earlier. PHYSICAL EXAMINATION: VITAL SIGNS: Pulse is 58, blood pressure 120/70, respirations 15. HEENT: Conjunctivae normal. NECK: No JVD. CARDIOVASCULAR: S1, S2 muffled. RESPIRATIONS: Breath sounds diminished at the bases. No rhonchi. No crackles. ABDOMEN: Soft, nontender. LEGS: No edema. NERVOUS SYSTEM: No focal deficits. SKIN: No ulcer, rash, bleeding. JOINTS: No active deforming arthropathy. LABORATORY DATA: CBC within normal. The rest of the labs are noted. ASSESSMENT: 1. Acute lateral wall myocardial infarction, status post cardiac catheterization and stenting of the right coronary artery. 2. Remote history of nicotine dependence. 3. History of prostate disorder. 4. Troponin up to 26.9. RECOMMENDATIONS AND DISCUSSION: Recommend to continue current medications. Continue symptomatic treatment. Continue with dual antiplatelet treatment. Continue with high-dose Lipitor and closely follow with Cardiology. The patient will be monitored in ICU. Prognosis guarded. Further recommendations to follow. MMODL / IJN: [id number] /
[2023-01-30] MEDS: ACETAMINOPHEN TAB 325 MG TAB PO PRN (00:31)
[2023-01-30 06:22] LABS: African American GFR (CKD) >90 (>60 ml/min/1.73 sqM); Anion Gap 5 mmol/L; Blood Urea Nitrogen 15 mg/dL (9-20); Calcium 8.4 mg/dL (8.4-10.2); Carbon Dioxide 26 mmol/L (22-30); Chloride 108 mmol/L (98-107); Glucose 95 mg/dL (74-99); Non-African American GFR(CKD) >90 (>60 ml/min/1.73 sqM); Potassium 3.7 mmol/L (3.5-5.1); Sodium 139 mmol/L (137-145)
[2023-01-30] MEDS: PRASUGREL 10 MG TAB PO SCH (08:35)
[2023-01-30] MEDS: METOPROLOL TARTRATE 25 MG TAB PO SCH (08:36)
[2023-01-30] MEDS ORDERED: ASPIRIN 81 MG PO SCH (09:00)
--- NOTE | 2023-01-30 09:32 | CA ---
Transthoracic Echo Report Name: Korey Galvan Age: 62 Gender: M : 1960 Exam Date: 01/29/2023 14:24 Exam Location: [place] [facility] Ht (in): 70 Wt (lb): 185 Ordering Physician: Shad Banda MD ([id number]) Attending/Referring Phys: Principal Trainer Mayra Naylor RDCS Procedure CPT: Indications: AK Cardiac Hx: stents Technical Quality: Good Contrast 1: Total Dose (mL): Contrast 2: Total Dose (mL): MEASUREMENTS (Male / Female) Normal Values 2D ECHO LV Diastolic Diameter PLAX 4.5 cm 4.2 - 5.9 / 3.9 - 5.3 cm LV Systolic Diameter PLAX 3.5 cm IVS Diastolic Thickness 1.2 cm 0.6 - 1.0 / 0.6 - 0.9 cm LVPW Diastolic Thickness 1.2 cm 0.6 - 1.0 / 0.6 - 0.9 cm LV Relative Wall Thickness 0.5 RV Internal Dim ED PLAX 3.5 cm LA Systolic Diameter LX 3.9 cm 3.0 - 4.0 / 2.7 - 3.8 cm LV Diastolic Volume MOD 4C 130.8 cm??? LV Systolic Volume MOD 4C 72.1 cm??? LV Ejection Fraction MOD 4C 44.9 % LV Diastolic Length 4C 9.0 cm LV Systolic Length 4C 7.3 cm LV Diastolic Volume MOD 2C 111.9 cm??? LV Systolic Volume MOD 2C 57.0 cm??? LV Ejection Fraction MOD 2C 49.1 % LV Diastolic Length 2C 8.4 cm LV Systolic Length 2C 6.9 cm LA Volume 48.3 cm??? 18 - 58 / 22 - 52 cm??? M-MODE Aortic Root Diameter MM 3.4 cm MV E Point Septal Separation 0.6 cm AV Cusp Separation MM 2.4 cm DOPPLER AV Peak Velocity 128.4 cm/s AV Peak Gradient 6.6 mmHg MV Area PHT 2.8 cm??? Mitral E Point Velocity 70.0 cm/s Mitral A Point Velocity 61.8 cm/s Mitral E to A Ratio 1.1 MV Deceleration Time 268.6 ms MV E' Velocity 8.0 cm/s Mitral E to MV E' Ratio 8.7 FINDINGS Left Ventricle Left ventricular ejection fraction is estimated at 45 %. Left ventricular cavity size normal. Mildly increased septal wall thickness. Basal inferior wall is hypokinetic Right Ventricle Mild right ventricular dilatation. Unable to estimate the right ventricular systolic pressure. Right Atrium Normal right atrial size. Left Atrium Normal left atrial size. Mitral Valve Structurally normal mitral valve. No mitral stenosis, regurgitation or prolapse. Aortic Valve Trileaflet aortic valve. No aortic valve stenosis or regurgitation. Tricuspid Valve Structurally normal tricuspid valve. No tricuspid stenosis, regurgitation or prolapse. Pulmonic Valve Structurally normal pulmonic valve. No pulmonic regurgitation. Pericardium Normal pericardium. No pericardial effusion. Aorta Normal size aortic root and proximal ascending aorta. CONCLUSIONS Mild LV systolic dysfunction secondary to prior inferior wall myocardial infarction Previewed by: Dr. Jaden Montalvo MD (Electronically Signed) Final Date: 30 Jan 2023 09:32
--- NOTE | 2023-01-30 11:46 | PN ---
PROGRESS NOTE SUBJECTIVE: Korey is a 62-year-old gentleman, who was admitted to hospital with acute lateral wall myocardial infarction, underwent emergent cardiac catheterization and angioplasty of right coronary artery. He had some chest discomfort yesterday morning, but that has resolved completely. This morning, he is doing well and is free of symptoms. He is on aspirin, Lipitor, Zestril, and Lopressor along with Effient. OBJECTIVE: GENERAL: Comfortable at rest. VITAL SIGNS: Stable. NECK: There is no jugular venous distention. CHEST: Reveals good air entry bilaterally. HEART: Reveals first and second heart sounds. No gallop. No murmur. ABDOMEN: Soft. EXTREMITIES: Did not reveal any edema. Peripheral pulses are felt. LABORATORY DATA: Show a creatinine of 0.6, potassium is 3.7. Hemoglobin is 15 and platelet count is 236. His troponins were normal at 4.9 and 26. Echocardiogram shows an ejection fraction of 45% with basal inferior wall hypokinesis. ASSESSMENT AND PLAN: Acute lateral wall myocardial infarction, status post catheterization and angioplasty of right coronary artery. The patient has a significant lesion within the left anterior descending. I am going to talk to Dr. Banda and see if we are going to do the left anterior descending angioplasty on this admission. MMODL / IJN: [id number] /
[2023-01-30] MEDS ORDERED: NITROGLYCERIN SL TABS 0.4 MG TAB SUBLINGUAL PRN (13:05)
[2023-01-30] MEDS ORDERED: ALPRAZolam 0.25 MG TAB PO PRN (13:05)
[2023-01-30] MEDS ORDERED: ALPRAZolam 0.5 MG TAB PO PRN (13:05)
[2023-01-30 17:25] LABS: Chol/HDL Ratio 4.84 Ratio; LDL Cholesterol,Calculated 134.3 mg/dL (0.0-131.0); VLDL Calculation 10.86 mg/dL (5.00-40.00)
[2023-01-30] MEDS: METOPROLOL TARTRATE 12.5 MG TAB PO SCH (20:40)
[2023-01-30] MEDS: ATORVASTATIN 80 MG TAB PO SCH (20:40)
--- NOTE | 2023-01-31 03:24 | PN ---
PROGRESS NOTE DATE OF SERVICE: 01/30/2023 SUBJECTIVE: This 62-year-old gentleman who was admitted with chest pain, had stenting of the RCA. No chest pain. No palpitations. No fever. OBJECTIVE: VITAL SIGNS: Pulse is 57, blood pressure 101/50, respirations 17. CHEST: Clear to auscultation. CARDIOVASCULAR: S1, S2. ABDOMEN: Soft. NERVOUS SYSTEM: No focal deficits. LABORATORY DATA: Reviewed. ASSESSMENT: 1. Acute lateral wall myocardial infarction ST-segment, status post cardiac catheterization and RCA stent. 2. Remote history of nicotine dependence. 3. History of prostate disorder. 4. Troponin up to 26.9. RECOMMENDATIONS: Recommend to continue current medications, continue symptomatic treatment. Continue dual antiplatelet treatment and closely follow with Cardiology. I would recommend repeat labs and further recommendations to follow. MMODL / IJN: [id number] /
[2023-01-31 04:04] LABS: Basophils % (A) 0 %; Eosinophils # (A) 0.2 k/uL (0-0.7); Eosinophils % (A) 2 %; HCT 41.6 % (39.0-53.0); HGB 13.9 gm/dL (13.0-17.5); Lymphocytes # (A) 1.4 k/uL (1.0-4.8); Lymphocytes % (A) 23 %; MCH 30.5 pg (25.0-35.0); MCHC 33.4 g/dL (31.0-37.0); MCV 91.1 fL (80.0-100.0); Mean Platelet Volume 7.8; Monocytes # (A) 0.6 k/uL (0-1.0); Monocytes % (A) 9 %; Neutrophils # (A) 3.9 k/uL (1.3-7.7); Neutrophils % (A) 63 %; Platelet Count 167 k/uL (150-450); RBC 4.57 m/uL (4.30-5.90); WBC 6.2 k/uL (3.8-10.6)
[2023-01-31 04:38] LABS: African American GFR (CKD) >90 (>60 ml/min/1.73 sqM); Anion Gap 6 mmol/L; Blood Urea Nitrogen 15 mg/dL (9-20); Calcium 8.5 mg/dL (8.4-10.2); Carbon Dioxide 25 mmol/L (22-30); Chloride 107 mmol/L (98-107); Glucose 90 mg/dL (74-99); Non-African American GFR(CKD) >90 (>60 ml/min/1.73 sqM); Potassium 3.9 mmol/L (3.5-5.1); Sodium 138 mmol/L (137-145)
[2023-01-31] MEDS ORDERED: ASPIRIN 325 MG TAB PO ONE (06:00)
[2023-01-31] MEDS ORDERED: ATORVASTATIN 80 MG TAB PO ONE (06:00)
[2023-01-31] MEDS: METOPROLOL TARTRATE 12.5 MG TAB PO SCH (06:07)
[2023-01-31] MEDS ORDERED: LIDOCAINE 1% INJ 10MG/ML (20 ML MDV) ONE (06:30)
[2023-01-31] MEDS ORDERED: VERAPAMIL 2.5 MG/ML 2 ML AMP ONE (06:30)
[2023-01-31] MEDS ORDERED: fentaNYL (PF) 50 MCG/ML 2 ML AMP ONE (06:37)
[2023-01-31] MEDS ORDERED: HEPARIN SODIUM 1,000 UN/ML (10ML VL) ONE (06:37)
[2023-01-31] MEDS ORDERED: SODIUM CHLORIDE 0.9% 1,000 ML IV ONE ×2 (06:46→06:53)
[2023-01-31] MEDS ORDERED: fentaNYL (PF) 50 MCG/ML 2 ML AMP IV ONE (06:48)
[2023-01-31] MEDS ORDERED: LIDOCAINE 1% INJ 10MG/ML (5 ML VIAL-PF) SQ ONE (06:52)
[2023-01-31] MEDS ORDERED: VERAPAMIL SYRINGE (5 MG/10 ML) INTRAARTER ONE (06:59)
[2023-01-31] MEDS ORDERED: HEPARIN SODIUM,PORCINE 2,500 UNIT in SODIUM CHLORIDE 0.9% 250 ML IRRIGATION PRN (07:00)
[2023-01-31] MEDS ORDERED: HEPARIN SODIUM,PORCINE 10,000 UNIT in SODIUM CHLORIDE 0.9% 1,000 ML IRRIGATION PRN (07:00)
[2023-01-31] MEDS: HEPARIN SODIUM 1,000 UN/ML (10ML VL) IV ONE ×2 (07:02→07:17)
[2023-01-31] MEDS ORDERED: MIDAZOLAM 2 MG/2 ML VIAL IV ONE (07:03)
[2023-01-31] MEDS ORDERED: PRASUGREL 10 MG TAB ONE (07:07)
[2023-01-31] MEDS ORDERED: PRASUGREL 10 MG TAB PO ONE (07:08)
[2023-01-31] MEDS ORDERED: IOPAMIDOL-370 100ML BTL INJ ONE ×2 (07:28→07:31)
[2023-01-31] MEDS: PRASUGREL 10 MG TAB PO SCH (07:38)
[2023-01-31] MEDS ORDERED: RX INFO: IV CONTRAST WAS GIVEN 1 EACH MISC MISCELLANE PRN (07:41)
[2023-01-31] MEDS ORDERED: NITROGLYCERIN SL TABS 0.4 MG TAB SUBLINGUAL PRN (07:41)
[2023-01-31] MEDS ORDERED: ATROPINE SULFATE 0.1 MG/ML 10ML SYRINGE IV PRN (07:41)
[2023-01-31] MEDS ORDERED: MAG HYDROX/AL HYDROX/SIMETH 30 ML CUP PO PRN (07:41)
[2023-01-31] MEDS ORDERED: ZOLPIDEM 5 MG TAB PO PRN (07:41)
[2023-01-31] MEDS ORDERED: SODIUM CHLORIDE 0.9% 1,000 ML in EMPTY BAG 1 BAG IV SCH (07:45)
--- NOTE | 2023-01-31 07:48 | P.CARDCATH ---
Date of Procedure: 01/31/23 Description of Procedure: PERCUTANEOUS TRANSLUMINAL CORONARY ANGIOPLASTY CLINICAL INFORMATION: The patient is a 62-year-old male who presented with an acute inferior wall myocardial infarction, underwent stenting of the RCA on Tuesday, at that time was found to have critical stenosis involving the proxima l LAD. Recommendations were made regarding angioplasty and stenting. The procedure as well as the risks and the complications were discussed with the patient who was in full understanding and agreement. PROCEDURE: The patient was brought to the chemical laboratory scientist in the fasting and semi- sedated state after receiving fentanyl and Benadryl. Using modified Seldinger technique a 6-Bahamian sheath was introduced in the right radial artery. A 6 Bah[place]ian EBU 3.75 guiding catheter was introduced into the system. After cannulating the left main, a 0.014 BMW J was advanced across the lesion and positioned distally. Attempts to advance a Explain [employer] intravascular ultrasound catheter was unsuccessful. Following that a 2.5 x 12 Treck balloon was advanced and inflated at 8 atmosphere. Subsequently intravascular ultrasound imaging was performed. After removing the catheter a 4.0 x 12 mm shockwave balloon was advanced and therapy was delivered. After removing the balloon repeat intravascular ultrasound imaging was performed. Following that a 4.0 x 23 mm Xience sanjuanita point stent was deployed. It was dilated at 14. After the last inflation, after appropriate wait, the balloon and the guidewire were with drawn back into the guiding catheter. Images were obtained and repeated. Those images reveal stable successful stenting. At that point, the guiding catheter, the balloon, and guidewire were removed. The sheath was removed. Hemostasis was obtained with and deployment of a TR band. There were no immediate complications. The patient was returned to the room in stable condition. Of note, the patient received 8500 units of heparin as well as Effient. His ACT was followed. There was no immediate complications. He had chest discomfort that resolved at the end of the procedure RESULTS: Successful stenting of the proximal LAD with reduction of stenosis from 90 % to 0 % with intravascular ultrasound imaging. RECOMMENDATIONS: The patient will continue on aspirin and Effient for 1 year w ithout interruption in addition to aggressive coronary risks modifications. The findings and recommendations were discussed with the patient and he was in full understanding and agreement. Duration of sedation: 44 minutes
[2023-01-31] MEDS: METOPROLOL TARTRATE 25 MG TAB PO SCH ×2 (11:39→21:39)
[2023-01-31] MEDS: ACETAMINOPHEN TAB 325 MG TAB PO PRN (11:39)
[2023-01-31] MEDS: ATORVASTATIN 80 MG TAB PO SCH (21:21)
[2023-02-01 04:58] VITALS: TEMP 97.8
[2023-02-01 06:42] LABS: Basophils % (A) 0 %; Eosinophils # (A) 0.2 k/uL (0-0.7); Eosinophils % (A) 3 %; HCT 41.7 % (39.0-53.0); HGB 13.9 gm/dL (13.0-17.5); Lymphocytes # (A) 1.4 k/uL (1.0-4.8); Lymphocytes % (A) 22 %; MCH 30.3 pg (25.0-35.0); MCHC 33.2 g/dL (31.0-37.0); MCV 91.2 fL (80.0-100.0); Mean Platelet Volume 7.9; Monocytes # (A) 0.5 k/uL (0-1.0); Monocytes % (A) 8 %; Neutrophils % (A) 63 %; Platelet Count 181 k/uL (150-450); RBC 4.58 m/uL (4.30-5.90); RDW 12.9 % (11.5-15.5); WBC 6.4 k/uL (3.8-10.6)
[2023-02-01 07:01] LABS: African American GFR (CKD) >90 (>60 ml/min/1.73 sqM); Anion Gap 7 mmol/L; Blood Urea Nitrogen 15 mg/dL (9-20); Calcium 8.5 mg/dL (8.4-10.2); Carbon Dioxide 26 mmol/L (22-30); Chloride 107 mmol/L (98-107); Glucose 123 mg/dL (74-99); Non-African American GFR(CKD) >90 (>60 ml/min/1.73 sqM); Potassium 3.7 mmol/L (3.5-5.1); Sodium 140 mmol/L (137-145)
--- NOTE | 2023-02-01 07:14 | PN ---
PROGRESS NOTE DATE OF SERVICE: 01/31/2023 SUBJECTIVE: This is a 62-year-old gentleman who was admitted with acute lateral wall infarction, had cardiac arrest and stenting. No chest pain. No palpitations. No fever. OBJECTIVE: VITAL SIGNS: Pulse is 72, blood pressure 94/50, respirations 16. CHEST: Clear to auscultation. CARDIOVASCULAR: S1, S2. ABDOMEN: Soft. NERVOUS SYSTEM: Nonfocal. LABORATORY DATA: Reviewed. ASSESSMENT: 1. Acute lateral wall myocardial infarction, ST-segment elevation myocardial infarction, status post cardiac catheterization and right coronary artery stenting. 2. Remote history of nicotine dependence. 3. History of prostate disorder. 4. Troponin up to 26.9. RECOMMENDATIONS AND DISCUSSION: Recommend to continue current medications, continue symptomatic treatment. Otherwise, increase ambulation. Continue with dual antiplatelet treatment per Cardiology. Prognosis guarded. Further recommendations to follow. Increase ambulation. MMODL / IJN: [id number] /
[2023-02-01] MEDS: PRASUGREL 10 MG TAB PO SCH (08:18)
[2023-02-01] MEDS: METOPROLOL TARTRATE 25 MG TAB PO SCH (08:19)
[2023-02-01] MEDS ORDERED: ASPIRIN 81 MG PO SCH (09:00)
--- NOTE | 2023-02-01 10:11 | P.PN ---
Subjective Progress Note Date: 02/01/23 History of present illness: This is a 62-year-old male admitted to the hospital with acute lateral wall my ocardial infarction underwent emergent cardiac catheterization and angioplasty of the right coronary artery. Yesterday, patient underwent successful stenting of the proximal LAD. He subsequently underwent successful stenting of the distal RCA with Dr. Banda. Patient was started on Effient continued on aspirin, statin, MEENAKSHI inhibitor and beta tyrell. Patient denies any chest pain or shortness of breath. He is anxious for discharge home today. He's been up and active today without symptoms of chest pain, shortness of breath, lightheadedness or dizziness. CBC is unremarkable. BUN 15 and creatinine 0.71, potassium 3.7. Blood sugar 123. Physical examination: Gen: This is a 62-year-old male. He is sitting on the edge of the bed appears to be comfortable and in no acute distress. VS: reviewed HEENT: Head is atraumatic, normocephalic. Pupils equal, round. Sclerae is anicteric. LUNGS: Good air entry. No intercostal retractions. HEART: Regular rate and rhythm. No murmur. ABDOMEN: Soft No tenderness. EXTREMITIES: No pedal edema. No calf tenderness. NEUROLOGICAL: Patient is awake, alert and oriented x3. Assessment: Acute lateral wall myocardial infarction status post catheterization and angioplasty of the right coronary artery and LAD Plan: Patient is cleared from cardiology perspective for discharge home. Positive prescriptions have been sent to his pharmacy. Patient follow-up with Dr. Montalvo in one week. Nurse practitioner note has been reviewed, I agree with documented findings and plan of care. Patient was seen and examined. Objective - Vital Signs Vital signs: Vital Signs Temp 97.8 F 02/01/23 04:57 Pulse 63 02/01/23 04:57 Resp 20 02/01/23 04:57 BP 102/61 02/01/23 04:57 Pulse Ox 98 02/01/23 04:57 FiO2 Intake & Output 01/31/23 02/01/23 02/01/23 18:59 06:59 18:59 Intake Total 1080 225 Balance 1080 225 Intake: Intake, IV Titration 225 Amount Sodium Chloride 0.9% 1, 225 000 ml In Empty Bag 1 bag @ 1 ML/KG/HR 89.9 mls/hr IV .[id number] [facility] Rx#: [id number] Oral 1080 Other: Voiding Method Toilet # Voids 2 - Labs CBC & Chem 7: 02/01/23 06:11 02/01/23 06:11
--- NOTE | 2023-02-01 13:26 | DS ---
DISCHARGE SUMMARY FINAL DIAGNOSES: 1. Acute lateral wall myocardial infarction. 2. ST-segment elevation myocardial infarction, status post cardiac catheterization and RCA stenting. 3. Remote history of nicotine dependence. 4. History of prostate disorder. 5. Troponin up to 26.9. DISCHARGE DISPOSITION: The patient will be discharged in stable condition, guarded prognosis. HISTORY OF PRESENT ILLNESS: This 62-year-old gentleman was admitted with features of acute lateral wall myocardial infarction. The patient underwent cardiac cath and stenting of the RCA. Please refer to the detailed cardiac cath report. Cardiology is planned to evaluate later as an outpatient. PHYSICAL EXAMINATION: VITALS: Stable. CARDIOVASCULAR: S1, S2. ABDOMEN: Soft. DISCHARGE INSTRUCTIONS AND MEDICATIONS: Discharged home with the following medications, 1. Lipitor 80 mg q.h.s. 2. Nitroglycerin 0.4 mg p.r.n. 3. Aspirin 81 mg daily. 4. Effient 10 mg daily. 5. Lopressor 25 mg p.o. b.i.d. 6. Zestril 2.5 mg p.o. b.i.d. MMKAVIN / CANDELARIAN: [id number] / MTDD
[2023-02-01 14:18] VITALS: BP 100/65; PULSE 72; RESP 18
== END 2023-02-01 13:14 | disposition home or self-care (01) | DRG 247 ==
LOC: EC 07:43 → 2SICU 08:03 → 3SCARD 01-31 04:43
PROVIDERS: ADMIT Hospitalist; ATTEND Hospitalist
PROC: B2111ZZ Fluoroscopy of Multiple Coronary Arteries using Low Osmolar Contrast (ICD-10-PCS; principal; 2023-01-29 08:14)
PROC: 4A023N7 Measurement of Cardiac Sampling and Pressure, Left Heart, Percutaneous Approach (ICD-10-PCS; principal; 2023-01-29 08:14)
PROC: 027035Z Dilation of Coronary Artery, One Artery with Two Drug-eluting Intraluminal Devices, Percutaneous Approach (ICD-10-PCS; 2023-01-29 08:14)
PROC: B240ZZ3 Ultrasonography of Single Coronary Artery, Intravascular (ICD-10-PCS; 2023-01-29 08:14)
PROC: 02F03ZZ Fragmentation in Coronary Artery, One Artery, Percutaneous Approach (ICD-10-PCS; 2023-01-31 07:00)
PROC: 027034Z Dilation of Coronary Artery, One Artery with Drug-eluting Intraluminal Device, Percutaneous Approach (ICD-10-PCS; 2023-01-31 07:00)
PROC: B240ZZ3 Ultrasonography of Single Coronary Artery, Intravascular (ICD-10-PCS; 2023-01-31 07:00)
DX: I21.29 ST elevation (STEMI) myocardial infarction involving other sites (principal); N42.9 Disorder of prostate, unspecified; I25.119 Atherosclerotic heart disease of native coronary artery with unspecified angina pectoris; E78.5 Hyperlipidemia, unspecified; Z87.891 Personal history of nicotine dependence; Z79.899 Other long term (current) drug therapy
CPT/HCPCS: 0715T; 36415; 71045; 80048; 80053; 80061; 83735; 84484; 85025; 85610; 85730; 92978; 93005; 93306; 93458; 96361; 96374; 96375; 99285

== ENCOUNTER → 2023-11-02 | Outpatient (CLI) | payer MEDICARE, OTHER ==
--- NOTE | 2023-11-03 09:57 | US ---
EXAMINATION TYPE: US carotid duplex BILAT DATE OF EXAM: 11/02/2023 COMPARISON: NONE CLINICAL INDICATION: Male, 63 years old with history of R42 DIZZINESS AND GIDDINESS; heart attack las t year TECHNIQUE: Carotid duplex ultrasound examination. Indirect Doppler criteria was utilized. FINDINGS: EXAM MEASUREMENTS: RIGHT: Peak Systolic Velocity (PSV) cm/sec ----- Right CCA: 86.2 ----- Right ICA: 113 ----- Right ECA: 162 ICA/CCA ratio: 1.3 RIGHT: End Diastole cm/sec ----- Right CCA: 18.2 ----- Right ICA: 34 ----- Right ECA: 16.6 LEFT: Peak Systolic Velocity (PSV) cm/sec ----- Left CCA: 88.4 ----- Left ICA: 113 ----- Left ECA: 121 ICA/CCA ratio: 1.3 LEFT: End Diastole cm/sec ----- Left CCA: 22.5 ----- Left ICA: 39.7 ----- Left ECA: 11.2 VERTEBRALS (direction of flow): Right Vertebral: Antegrade Left Vertebral: Antegrade Rhythm: Normal HEADLIGHT ADJUSTER NOTES: No significant stenosis seen IMPRESSION: No hemodynamically significant internal carotid artery stenosis on either side. Criteria for Assigning % of Stenosis / Diameter reduction (Estimation based on the indirect measurements of the internal carotid artery velocities (ICA PSV). 1. Normal (no stenosis)=ICA PSV < 125 cm/s: ratio < 2.0: ICA EDV<40 cm/s. 2. Less than 50% stenosis=ICA PSV < 125 cm/s: ratio < 2.0: ICA EDV<40 cm/s. 3. 50 to 69% stenosis=ICA PSV of 125 to 230 cm/s: ration 2.0 ? 4.0: ICA EDV 40-100 cm/s. 4. Greater than 70% stenosis to near occlusion= ICA PSV > 230 cm/s: ratio > 4.0: ICA EDV > 100 cm/s. 5. Near occlusion= ICA PSV velocities may be low or undetectable: variable ratio and ICA EDV. 6. Total occlusion=unable to detect flow.
== END | disposition home or self-care (01) ==
LOC: RADUSWWP 15:51
PROVIDERS: ATTEND Nuclear Medicine Nuclear Cardiology
DX: R42 Dizziness and giddiness (principal)
CPT/HCPCS: 93880